=== PATIENT | female | born 1965 | race Caucasian/White ===

== ENCOUNTER 2024-04-17 17:34 | Emergency (ER) | payer MEDICAID ==
[~2024-04-17] VITALS: Ht 162.6 cm; Wt 91.0 kg
[2024-04-17 18:23] VITALS: TEMP 98.7; O2SAT 98
[2024-04-17] MEDS ORDERED: NAPR-1176 MT (22:18)
[2024-04-17] MEDS: KETOROLAC 15MG/ML VIAL IM ONE (22:19)
[2024-04-17 22:36] VITALS: BP 160/72; PULSE 71; RESP 18; O2SAT 98
== END 2024-04-17 22:39 | disposition home or self-care (01) ==
LOC: ER 17:34
DX: G43.909 Migraine, unspecified, not intractable, without status migrainosus (principal); I10 Essential (primary) hypertension
CPT/HCPCS: 70450; 96372; 99285; J1885; Z7610